=== PATIENT | male | born 1995 ===

== ENCOUNTER 2019-01-06 13:56 | Emergency (ER) | payer SELFPAY ==
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
[2019-01-06] MEDS ORDERED: TETANUS,DIPH,PERTUSS(ACELL) VACCINE 0.5 ML SYRINGE IM ONE (14:07)
[2019-01-06] MEDS ORDERED: LIDOCAINE (1%) 10 MG/1 ML VIAL 20 ML MDV INFILTRATI ONE (14:07)
[2019-01-06] MEDS: HYDROcodone/ACETAMINOPHEN 5-325 MG TAB PO ONE ×2 (14:08→15:07)
[2019-01-06] MEDS ORDERED: NEOMY 3.5 MG/BACIT 400 UNITS/POLY B 5000 UNITS/GM OINT PACKET TP ONE (14:31)
[2019-01-06] MEDS ORDERED: SODIUM CHLORIDE 0.9% IRR 500 ML BOTTLE IR ONE (14:31)
[2019-01-06] MEDS ORDERED: HYDROmorphone 1 MG/1 ML INJ IM ONE (14:31)
[2019-01-06] MEDS ORDERED: LIDOCAINE 2%/EPINEPHRINE 1:200,000 VIAL (20 ML) INFILTRATI ONE (14:32)
[2019-01-06] MEDS ORDERED: SODIUM CHLORIDE 0.9% 1000 ML 1,000 ML IV ONE (14:32)
--- NOTE | 2019-01-06 14:33 | Emergency Department Report ---
ED Laceration HPI - HPI Chief Complaint: Extremity Injury, Lower Stated Complaint: NAIL IN R FOOT Time Seen by Provider: 01/06/19 14:02 Occurred When: Today Location: Lower Extremity Severity: severe Tetanus Status: Not up to Date Laceration Symptoms: Yes Foreign Body Sensation, Yes Pain, No Numbness, No Weakness Other History: 23 YO WITH NAIL IN FOOT. ACCIDENTLY FIRED NAIL WHILE AT WORK. NO BLEEDING. NO OTHER INJURY ED Review of Systems ROS: Stated complaint: NAIL IN R FOOT Other details as noted in HPI Comment: All other systems reviewed and negative ED Past Medical Hx - Past Medical History Previous Medical History?: No - Surgical History Past Surgical History?: No - Family History Family history: no significant - Social History Smoking Status: Never Smoker Substance Use Type: None - Medications Home Medications: Home Medications Medication Instructions Recorded Confirmed Last Taken Type Ibuprofen [Motrin] 800 mg PO Q8HR PRN #30 tablet 01/06/19 Unknown Rx cephALEXin [Keflex] 500 mg PO Q12HR #20 cap 01/06/19 Unknown Rx Laceration Physical Exam - Exam General: Vital signs noted. No distress. Alert and acting appropriately. Laceration Location: Lower Extremity Laceration Exam: Yes Foreign Body, Yes Normal Distal CMS, No Exposed Tendon, Vessel, or Nerve, No Tendon Injury ED Course Vital Signs 01/06/19 14:00 Temperature 98.3 F Pulse Rate 87 Respiratory 18 Rate Blood Pressure 138/81 O2 Sat by Pulse 99 Oximetry ED Medical Decision Making - Radiology Data Radiology results: report reviewed, image reviewed - Medical Decision Making FB NOTED IN SOFT TISSUE OF FOOT REMOVED WITHOUT DIFFICULTY P LOCAL AND IM PAIN MEDICATION TDAP GIVEN ANCEF GIVEN FOUND CLEANED AND DRESSING APPLIED DC HOME WITH DC PLAN OF CARE AND PCP FOLLOW UP Vital Signs 01/06/19 14:00 Temperature 98.3 F Pulse Rate 87 Respiratory 18 Rate Blood Pressure 138/81 O2 Sat by Pulse 99 Oximetry Critical care attestation.: If time is entered above; I have spent that time in minutes in the direct care of this critically ill patient, excluding procedure time. ED Disposition Clinical Impression: Puncture wound, Foreign body (FB) in soft tissue Disposition: DC-01 TO HOME OR SELFCARE Is pt being admited?: No Does the pt Need Aspirin: No Condition: Stable Additional Instructions: KEEP FOOT CLEAN AND DRY CLEAN WITH SOAP AND WATER ICE AND ELEVATION TONIGHT MEDS ORDERED TODAY FOLLOW UP WITH PCP IN 48 HOURS FOR RECHECK Prescriptions: cephALEXin [Keflex] 500 mg PO Q12HR #20 cap Ibuprofen [Motrin] 800 mg PO Q8HR PRN #30 tablet PRN Reason: Pain, Moderate (4-6) Referrals: [facility] [Outside] - 3-5 Days Time of Disposition: 15:15
--- NOTE | 2019-01-06 15:00 | XRay Report ---
LEFT FOOT, 3 VIEWS INDICATION: Nail in foot. COMPARISON: None. IMPRESSION: Normal bone mineralization. A radiopaque foreign body consistent with a nail was in the lateral plantar soft tissues adjacent to the fifth toe. No acute osseous injury or joint pathology i s identified. Signer Name: Esau Chen Jr, MD Signed: 01/06/2019 2:56 PM Workstation Name: [id number]
[2019-01-06 16:52] VITALS: BP 131/66
== END 2019-01-06 16:52 | disposition home or self-care (01) ==
LOC: ED 13:56
DX: S91.341A Puncture wound with foreign body, right foot, initial encounter (principal); Z79.899 Other long term (current) drug therapy; W45.0XXA Nail entering through skin, initial encounter; Y93.89 Activity, other specified; Y92.89 Other specified places as the place of occurrence of the external cause; Y99.8 Other external cause status
CPT/HCPCS: 73630; 90471; 90715; 96365; 96372; 99283; J0690; J1170; J7030; A6250